=== PATIENT | female | born 1975 | race Caucasian/White ===

== ENCOUNTER 2019-07-22 12:40 | Emergency (ER) | payer OTHER ==
--- NOTE | 2019-07-22 13:08 | ER Document Report ---
ED Medical Screen (RME) - General Chief Complaint: Chest Pain Stated Complaint: PALPITATIONS/BLOOD PRESSURES ISSUES Time Seen by Provider: 07/22/19 13:01 Primary Care Provider: GISELLA HOUSE DO [Primary Care Provider] - Follow up as needed Mode of Arrival: Ambulatory Information source: Patient Notes: This 43-year-old female with history of breast cancer double mastectomy presents emergency department with palpitations feeling very weird. Patient feels very anxious. Refusing to sit down reports it makes her feel worse. Reports she is felt nauseated. Last bowel movement prior to arrival. Reports that she is had a cold she is been fighting she took some vitamin C some Advil cold medicine she takes several supplements for health. Patient is extremely anxious. EKG shows sinus tach with PVC. I have greeted and performed a rapid initial assessment of this patient. A comprehensive ED assessment and evaluation of the patient, analysis of test resu lts and completion of the medical decision making process will be conducted by additional ED providers. Dictation of this chart was performed using voice recognition software; therefore, there may be some unintended grammatical errors. - Related Data Allergies/Adverse Reactions: codeine Allergy (Verified 07/22/19 13:00) Physical Exam - Vital signs Vitals: Temp Pulse Resp BP Pulse Ox 97.4 F 121 H 20 153/101 H 99 07/22/19 12:47 07/22/19 12:47 07/22/19 12:47 07/22/19 12:47 07/22/19 12:47 Course - Vital Signs Vital signs: Temp Pulse Resp BP Pulse Ox 97.4 F 121 H 20 153/101 H 99 07/22/19 12:47 07/22/19 12:47 07/22/19 12:47 07/22/19 12:47 07/22/19 12:47 Doctor's Discharge - Discharge Referrals: GISELLA HOUSE DO [Primary Care Provider] - Follow up as needed
[2019-07-22 13:37] LABS: APPEARANCE,URINE SLIGHTLY-CLOUDY; BILIRUBIN,URINE NEGATIVE (NEGATIVE); GLUCOSE, URINE NEGATIVE (NEGATIVE); KETONES,URINE TRACE mg/dL (NEGATIVE); LEUKOCYTE ESTERASE,URINE SMALL (NEGATIVE); NITRITE,URINE NEGATIVE (NEGATIVE); PROTEIN,URINE NEGATIVE (NEGATIVE); UROBILINOGEN,URINE NEGATIVE mg/dL (<2.0)
--- NOTE | 2019-07-22 13:37 | RADIOLOGY REPORT (SQ) ---
EXAM DESCRIPTION: CHEST 2 VIEWS COMPLETED DATE/TIME: 07/22/2019 1:27 pm REASON FOR STUDY: palpitations COMPARISON: None. EXAM PARAMETERS: NUMBER OF VIEWS: two views TECHNIQUE: Digital Frontal and Lateral radiographic views of the chest acquired. RADIATION DOSE: NA LIMITATIONS: none FINDINGS: LUNGS AND PLEURA: No opacities, masses or pneumothorax. No pleural effusion. MEDIASTINUM AND HILAR STRUCTURES: No masses or contour abnormalities. HEART AND VASCULAR STRUCTURES: Heart normal size. No evidence for failure. BONES: No acute findings. HARDWARE: Surgical clips overlie right upper quadrant and right axilla. OTHER: No other significant finding. IMPRESSION: No evidence of acute cardiopulmonary process. TECHNICAL DOCUMENTATION: JOB ID: [id number] [employer]- All Rights Reserved Reading location - IP/workstation name: [email or web address]
[2019-07-22 13:40] LABS: ABSOLUTE EOSINOPHILS # (AUTO) 0.1 10^3/uL (0.0-0.6); ABSOLUTE MONOCYTES (AUTO) 0.2 10^3/uL (0.1-1.4); BASOPHILS % (AUTO) 0.6 % (0-2); EOSINOPHILS % (AUTO) 1.7 % (0-6); HEMATOCRIT 39.6 % (36.0-47.0); HEMOGLOBIN 13.4 g/dL (12.0-15.5); LYMPHOCYTES % (AUTO) 18.3 % (13-45); MEAN CORPUSCULAR HEMOGLOBIN 28.1 pg (27.0-33.4); MEAN CORPUSCULAR HGB CONC 33.9 g/dL (32.0-36.0); MEAN CORPUSCULAR VOLUME 83 fl (80-97); MONOCYTES % (AUTO) 4.6 % (3-13); PLATELET COUNT 220 10^3/uL (150-450); RED BLOOD COUNT 4.78 10^6/uL (3.72-5.28); RED CELL DISTRIBUTION WIDTH 14.2 % (11.5-14.0); SEGMENTED NEUTROPHILS % (AUTO) 74.8 % (42-78); TOTAL CELLS COUNTED % (AUTO) 100 %; WHITE BLOOD COUNT 5.3 10^3/uL (4.0-10.5)
[2019-07-22 13:41] LABS: COLOR,URINE YELLOW
[2019-07-22 13:53] LABS: ALBUMIN 4.8 g/dL (3.5-5.0); ALKALINE PHOSPHATASE 89 U/L (38-126); ANION GAP 11 (5-19); ASPARTATE AMINO TRANSFERASE 44 U/L (14-36); BILIRUBIN,DIRECT 0.2 mg/dL (0.0-0.4); BILIRUBIN,TOTAL 0.6 mg/dL (0.2-1.3); BLOOD UREA NITROGEN 17 mg/dL (7-20); CALCIUM 9.8 mg/dL (8.4-10.2); CARBON DIOXIDE 28 mmol/L (22-30); CHLORIDE 99 mmol/L (98-107); CREATINE KINASE 102 U/L (30-135); GLUCOSE 134 mg/dL (75-110); POTASSIUM 3.8 mmol/L (3.6-5.0); TOTAL PROTEIN 7.8 g/dL (6.3-8.2)
[2019-07-22 13:58] LABS: URINE AMPHETAMINES SCREEN NEGATIVE; URINE BARBITURATES SCREEN NEGATIVE; URINE BENZODIAZEPINES SCREEN NEGATIVE; URINE COCAINE SCREEN NEGATIVE; URINE MARIJUANA (THC) SCREEN NEGATIVE; URINE METHADONE SCREEN NEGATIVE; URINE PHENCYCLIDINE SCREEN NEGATIVE
[2019-07-22 16:14] VITALS: BP 131/81
--- NOTE | 2019-07-22 16:19 | ER Document Report ---
ED General - General Chief Complaint: Chest Pain Stated Complaint: PALPITATIONS/BLOOD PRESSURES ISSUES Time Seen by Provider: 07/22/19 13:01 Primary Care Provider: GISELLA HOUSE DO [Primary Care Provider] - Follow up in 3-5 days Mode of Arrival: Ambulatory - [facility] Notes: Patient is a 43-year-old female with a history of breast cancer status post double mastectomy and radiation in the past who presents complaining of feeling flushed and palpitations this morning which have since resolved. Pt also has been having nasal justine/discharge with sinus pressure that began yesterday. When patient was being triaged she states that she felt very anxious at the time and could feel her heart racing. Patient states that she was drinking coffee and took a couple different [id number] cold meds that had phenylephrine in it on an empty stomach just prior to the start of symptoms. Patient states that she did not notice any significant chest pain, it was more the feeling of her heart racing and then getting very anxious on top of that with some mild tightness. Patient states that she has had issues with Sudafed in the past and was not aware of the phenylephrine in the medication she was taking. She otherwise does not take any medicines daily. She is able to eat and drink without difficulty. She is urinating normally and having normal bowel movements although today when she is feeling anxious she did have diarrhea once. Denies any prolonged immobilization, distance travel, recent surgery/trauma, personal cancer history, hormone use, smoking, or previous DVT/PE. Denies any headache, fever, neck pain, URI, sore throat, syncope, cough, wheeze, dyspnea, abdominal pain, nausea/vomiting/diarrhea, urinary retention, dysuria, hematuria, or rash. - Related Data Allergies/Adverse Reactions: codeine Allergy (Verified 07/22/19 13:00) Past Medical History - General Information source: Patient - Social History Smoking Status: Former Smoker Family History: Reviewed & Not Pertinent Patient has suicidal ideation: No Patient has homicidal ideation: No Review of Systems - Review of Systems -: Yes All other systems reviewed and negative Physical Exam - Vital signs Vitals: Temp Pulse Resp BP Pulse Ox 97.4 F 121 H 20 153/101 H 99 07/22/19 12:47 07/22/19 12:47 07/22/19 12:47 07/22/19 12:47 07/22/19 12:47 - Notes Notes: PHYSICAL EXAMINATION: GENERAL: Well-appearing, well-nourished and in no acute distress. HEAD: Atraumatic, normocephalic. EYES: Pupils equal round and reactive to light, extraocular movements intact, sclera anicteric, conjunctiva are normal. ENT: Nares patent and without discharge. oropharynx clear without exudates. No tonsilar hypertrophy or erythema. Moist mucous membranes. NECK: Normal range of motion, supple without lymphadenopathy LUNGS: Breath sounds clear to auscultation bilaterally and equal. No wheezes rales or rhonchi. HEART: Regular rate and rhythm without murmurs, rubs, gallops. ABDOMEN: Soft, nontender, nondistended abdomen. No guarding, no rebound. Normal bowel sounds present. No CVA tenderness bilaterally. Musculoskeletal: FROM to passive/active. Strength 5+/5. Pato neg. No asymmetry to LE's. Extremities: No cyanosis, clubbing, or edema b/l. Peripheral pulses 2+. Capillary refill less than 3 seconds. NEUROLOGICAL: Normal speech, normal gait. PSYCH: Normal mood, normal affect. SKIN: Warm, Dry, normal turgor, no rashes or lesions noted. Course - Re-evaluation Re-evalutation: 07/22/19 16:45 Patient is an afebrile, well-hydrated 43-year-old female who presents to the ED with palpitations, since resolved, and URI that I suspect to be viral. I do suspect that the caffeine and combination with the otc cold medications on an empty stomach had an influence on her presentation today in combination with anxiety. Vitals are acceptable without any significant tachycardia, tachypnea, or hypoxia. PE is otherwise unremarkable. Pt was noted to be very anxious at triage which I since resolved. Patient is nontoxic-appearing and is tolerating p.o. without any difficulties. Pt is currently asymptomatic. CBC, CMP, EKG/cardiac enzyme, chest x-ray are all unremarkable for any acute pathology. Pt had repeat vitals as she is no longer anxious with repeat EKG(HR 77) which were acceptable. She was never tachycardic with me. No other DVT risk factors. Patient has a heart score of 2, Wells score of 0, and is PERC negative. Patient does not have any chest pain, dyspnea, or shortness of breath. Patient's presentation and symptomatology creates low suspicion for ACS, PE, pneumothorax, pericarditis, dissection, respiratory compromise, severe dehydration, sepsis, meningitis, or other systemic emergent condition at this time. Patient is aware that this condition can change from initial presentation and she needs to monitor symptoms closely and seek medical attention for any acute changes. Pt is feeling better and would like to go home. Recommend conservative measures for symptoms. Recheck with your PCM in 2-3 days. Consider consult with Cardiology. Return to the ED with any worsening/concerning symptoms otherwise as reviewed in discharge. Patient is in agreement. - Vital Signs Vital signs: Temp Pulse Resp BP Pulse Ox 98.7 F 82 18 131/81 H 98 07/22/19 16:13 07/22/19 16:13 07/22/19 16:13 07/22/19 16:13 07/22/19 16:13 - Laboratory Result Diagrams: 07/22/19 13:11 07/22/19 13:11 Laboratory results interpreted by me: 07/22/19 07/22/19 07/22/19 13:11 13:11 13:11 RDW 14.2 H Glucose 134 H AST 44 H Urine Ketones TRACE H Ur Leukocyte Esterase SMALL H Urine Ascorbic Acid 40 H Discharge - Discharge Clinical Impression: Palpitations Condition: Stable Disposition: HOME, SELF-CARE Instructions: Palpitations (Irregular or Rapid Heartrate) ([facility]) Additional Instructions: Maintain adequate fluid and food intake Healthy diet Monitor blood pressure/heart rate daily and keep a log Monitor symptoms for any acute changes Recheck with your PCM in 3-5 days Consider a follow-up with cardiology Return to the ED with any worsening symptoms and/or development of fever, headache, chest pain, palpitations, syncope, shortness of breath, trouble breathing, abdominal pain, n/v/d, blood in stool/urine, loss of control of bowel/bladder, urinary retention, muscle weakness/paralysis, numbness/tingling, or other worsening symptoms that are concerning to you. Forms: Elevated Blood Pressure Referrals: GISELLA HOUSE DO [Primary Care Provider] - Follow up in 3-5 days
--- NOTE | 2019-07-23 09:08 | EKG REPORT ---
SEVERITY:- NORMAL ECG - SINUS RHYTHM : Confirmed by: Génesis Matos 23-Jul-2019 09:08:10
--- NOTE | 2019-07-23 09:09 | EKG REPORT ---
SEVERITY:- ABNORMAL ECG - SINUS TACHYCARDIA MULTIPLE VENTRICULAR PREMATURE COMPLEXES : Confirmed by: Génesis Matos 23-Jul-2019 09:08:19
== END 2019-07-22 16:53 | disposition home or self-care (01) ==
LOC: ER 12:40
DX: R00.2 Palpitations (principal); R07.9 Chest pain, unspecified; R09.81 Nasal congestion; R09.89 Other specified symptoms and signs involving the circulatory and respiratory systems; F41.9 Anxiety disorder, unspecified; Z85.3 Personal history of malignant neoplasm of breast; Z98.890 Other specified postprocedural states; Z87.891 Personal history of nicotine dependence
CPT/HCPCS: 36415; 71046; 80053; 80307; 81001; 81025; 82550; 84484; 85025; 93005; 93010; 99285

== ENCOUNTER 2020-09-09 17:12 | Emergency (ER) | payer OTHER ==
[2020-09-09] MEDS ORDERED: PREDNISONE 20 MG TABLET PO ONE (18:05)
--- NOTE | 2020-09-09 18:07 | ER Document Report ---
ED Medical Screen (RME) - General Chief Complaint: Shortness Of Breath Stated Complaint: SHORTNESS OF BREATH Time Seen by Provider: 09/09/20 18:04 Mode of Arrival: Ambulatory Information source: Patient Notes: 45-year-old female presents to ED for complaint of shortness of breath and cough on August 08. She states she did test negative for Covid at that time. [place]. [place] had a follow-up visit for Covid and strep at the urgent care when she had no sense of taste. She states they started her on Augmentin she felt better for a little while and then it came back. [place] she had atypical pneumonia and started on albuterol, Levaquin and then she had a reverse reaction to the Levaquin so they stopped the Levaquin and started on a Z-Farzad. She states her shortness of breath is gotten worse and she gets very exhausted when she walks. States she does not drink use any drugs she is a former smoker. I have repeated the Covid strep flu chest x-ray have ordered her some steroids and she will be seen by another provider. I have greeted and performed a rapid initial assessment of this patient. A comprehensive ED assessment and evaluation of the patient, analysis of test results and completion of medical decision making process will be conducted by an additional ED providers. - Related Data Allergies/Adverse Reactions: codeine Allergy (Verified 07/22/19 13:00) levofloxacin [From Levaquin] Adverse Reaction (Verified 09/09/20 18:04) Anxiety Home Medications: vitamins Past Medical History - Social History Chew tobacco use (# tins/day): No Frequency of alcohol use: None Drug Abuse: None Physical Exam - Vital signs Vitals: Temp Pulse Resp BP Pulse Ox 98.7 F 124 H 20 149/95 H 97 09/09/20 17:43 09/09/20 17:43 09/09/20 17:43 09/09/20 17:43 09/09/20 17:43 Course - Vital Signs Vital signs: Temp Pulse Resp BP Pulse Ox 98.7 F 124 H 20 149/95 H 97 09/09/20 17:43 09/09/20 17:43 09/09/20 17:43 09/09/20 17:43 09/09/20 17:43
[2020-09-09 19:07] LABS: ABSOLUTE EOSINOPHILS # (AUTO) 0.3 10^3/uL (0.0-0.6); ABSOLUTE LYMPHOCYTES (AUTO) 1.1 10^3/uL (0.5-4.7); ABSOLUTE MONOCYTES (AUTO) 0.6 10^3/uL (0.1-1.4); ABSOLUTE NEUT (AUTO) 8.3 10^3/uL (1.7-8.2); BASOPHILS % (AUTO) 0.4 % (0-2); EOSINOPHILS % (AUTO) 2.8 % (0-6); HEMATOCRIT 40.8 % (36.0-47.0); HEMOGLOBIN 14.1 g/dL (12.0-15.5); LYMPHOCYTES % (AUTO) 10.8 % (13-45); MEAN CORPUSCULAR HEMOGLOBIN 29.3 pg (27.0-33.4); MEAN CORPUSCULAR HGB CONC 34.6 g/dL (32.0-36.0); MEAN CORPUSCULAR VOLUME 85 fl (80-97); PLATELET COUNT 245 10^3/uL (150-450); RED BLOOD COUNT 4.82 10^6/uL (3.72-5.28); RED CELL DISTRIBUTION WIDTH 13.8 % (11.5-14.0); TOTAL CELLS COUNTED % (AUTO) 100 %; WHITE BLOOD COUNT 10.3 10^3/uL (4.0-10.5)
[2020-09-09] MEDS ORDERED: NORMAL SALINE 1000 ML 1,000 ML IV ONE (19:11)
[2020-09-09] MEDS ORDERED: IPRATROPIUM/ALBUTEROL 0.5-2.5 MG/3 ML AMPUL NEB ONE ×2 (19:11)
--- NOTE | 2020-09-09 19:12 | RADIOLOGY REPORT (SQ) ---
EXAM DESCRIPTION: CHEST SINGLE VIEW IMAGES COMPLETED DATE/TIME: 09/09/2020 7:03 pm REASON FOR STUDY: Cough congestion short of breath decreased sense o COMPARISON: 07/22/2019 EXAM PARAMETERS: NUMBER OF VIEWS: One view. TECHNIQUE: Single frontal radiographic view of the chest acquired. RADIATION DOSE: NA LIMITATIONS: None. FINDINGS: LUNGS AND PLEURA: No opacities, masses or pneumothorax. No pleural effusion. MEDIASTINUM AND HILAR STRUCTURES: No masses. Contour normal. HEART AND VASCULAR STRUCTURES: Heart normal in size. Normal vasculature. BONES: No acute findings. HARDWARE: None in the chest. OTHER: No other significant finding. IMPRESSION: NO ACUTE RADIOGRAPHIC FINDING IN THE CHEST. TECHNICAL DOCUMENTATION: JOB ID: [id number] [employer]- All Rights Reserved Reading location - IP/workstation name: [email or web address]
[2020-09-09 19:30] LABS: ALKALINE PHOSPHATASE 123 U/L (38-126); ANION GAP 10 (5-19); ASPARTATE AMINO TRANSFERASE 154 U/L (14-36); BILIRUBIN,DIRECT 0.1 mg/dL (0.0-0.4); BILIRUBIN,TOTAL 0.5 mg/dL (0.2-1.3); BLOOD UREA NITROGEN 16 mg/dL (7-20); CALCIUM 10.2 mg/dL (8.4-10.2); CARBON DIOXIDE 27 mmol/L (22-30); CHLORIDE 104 mmol/L (98-107); GLUCOSE 105 mg/dL (75-110); POTASSIUM 4.7 mmol/L (3.6-5.0); TOTAL PROTEIN 8.4 g/dL (6.3-8.2)
--- NOTE | 2020-09-09 19:42 | ER Document Report ---
ED Respiratory Problem - General Chief Complaint: Shortness Of Breath Stated Complaint: SHORTNESS OF BREATH Time Seen by Provider: 09/09/20 18:04 Mode of Arrival: Ambulatory - [facility] Notes: Patient is a 45-year-old female with a past medical history of breast cancer in remission who presents with cough and shortness of breath. States she has had symptoms for about 1 month. She finished Augmentin and felt better but symptoms returned after she finished. She took 1 day of Levaquin but did not like the reaction to it which made her anxious so she stopped. Her doctor put her on azithromycin instead. She is on day 3 of her Z-Farzad. Patient states she has shortness of breath with walking. She has a cough productive of yellow sputum. She states it hurts in her chest when she coughs. Denies any fevers. States she has been using her Mucinex and her inhaler without relief. Denies any history of previous PE. She has no leg swelling or recent surgeries. No periods of immobility. She is not on any estrogen. - Related Data Allergies/Adverse Reactions: codeine Allergy (Verified 07/22/19 13:00) levofloxacin [From Levaquin] Adverse Reaction (Verified 09/09/20 18:04) Anxiety Home Medications: vitamins Past Medical History - General Information source: Patient - Social History Smoking Status: Former Smoker Chew tobacco use (# tins/day): No Frequency of alcohol use: None Drug Abuse: None Family History: Reviewed & Not Pertinent Review of Systems - Review of Systems Notes: CONSTITUTIONAL: No fever, fatigue or weight loss. SKIN: No rash. HENT: No congestion, ear pain, or sore throat. EYES: No recent vision problems or eye pain. ENDOCRINE: No thyroid problems. No polyuria or polydipsia. CARDIOVASCULAR: Chest pain with coughing. RESPIRATORY: Positive for cough, wheezing, shortness of breath GASTROINTESTINAL: No abdominal pain, nausea, vomiting. Positive for diarrhea. GENITOURINARY: No dysuria. MUSCULOSKELETAL: No joint pain or swelling. LYMPHATIC: No swollen glands. NEUROLOGIC: No seizures. No headache, focal weakness or sensory changes. HEMATOLOGIC: No unusual bruising or bleeding. PSYCHIATRIC: No depression or anxiety. Physical Exam - Vital signs Vitals: Temp Pulse Resp BP Pulse Ox 98.7 F 124 H 20 149/95 H 97 09/09/20 17:43 09/09/20 17:43 09/09/20 17:43 09/09/20 17:43 09/09/20 17:43 - General General appearance: Appears well Notes: VITAL SIGNS: Within normal limits. GENERAL: No acute distress, non-toxic appearance. HEAD: Normal with no signs of head trauma. EYES: EOMI, conjunctiva normal, no discharge. EARS: Hearing grossly intact. NOSE: Normal. NECK: Normal range of motion, no tenderness, supple, no lymphadenopathy, No adenopathy, no JVD. CHEST: Scattered wheezing bilaterally. CARDIAC: Regular rate and rhythm. S1 and S2, without murmurs, gallops, or rubs. VASCULAR: No Edema. ABDOMEN: Normal and soft with no tenderness GENITOURINARY: Normal, No tenderness LYMPATHTIC: No lymphadenopathy noted. MUSCULOSKELETAL: Good range of motion of all major joints. Extremities without clubbing, cyanosis or edema. NEUROLOGICAL: Alert and oriented x 3. No focal sensory or strength deficits. Speech normal. Follows commands appropriately. PSYCHIATRIC: Normal Affect, judgement and mood. SKIN: Normal appearance with no rashes or lesions. Course - Re-evaluation Re-evalutation: 09/09/20 20:49 Patient has had 2 negative Covid tests. She has had x-rays done. Patient is still having symptoms. She does have a history of breast cancer. I did discuss with her an option of a CTA to evaluate for pneumonia versus PE. Patient states she would like to have this done. Will be given DuoNeb's and steroids. Patient's CTA is negative for PE. She does have evidence of bronchitis. Patient was told that she can finish her Z-Farzad that she already started but she does not need any other antibiotics. I will send her home with a short burst of steroids. Patient ambulated without difficulty and pulse ox was normal. Her heart rate has improved with fluids. Patient asked if she could have her inhaler refilled as well as nebulizer treatments. Patient was told she needs to follow-up with her PCP. I did discuss with her the transaminitis and told her this needs to be followed up with to make sure it has resolved. She was also told to return if she develops any abdominal pain or vomiting. She was instructed to stay hydrated. Patient was retested for Covid and told to self isolate until she is called with a negative result. Patient is very agreeable and understands the plan for follow-up. Strict return precautions provided. 09/10/20 02:24 09/10/20 02:26 - Vital Signs Vital signs: Temp Pulse Resp BP Pulse Ox 98.9 F 86 16 129/74 H 94 09/09/20 22:10 09/09/20 22:10 09/09/20 22:10 09/09/20 22:10 09/09/20 22:10 - Laboratory Result Diagrams: 09/09/20 19:00 09/09/20 19:00 Laboratory results interpreted by me: 09/09/20 09/09/20 19:00 19:00 Lymph % (Auto) 10.8 L Absolute Neuts (auto) 8.3 H Seg Neutrophils % 80.0 H AST 154 H ALT 73 H Total Protein 8.4 H - Diagnostic Test Radiology reviewed: Image reviewed, Reports reviewed - EKG Interpretation by Me EKG shows normal: Sinus rhythm Rate: Tachycardia When compared to previous EKG there are: No significant change Additional EKG results interpreted by me: 09/09/20 22:03 Sinus tachycardia at a rate of 127. QTc 454. No acute ST changes. EKG is similar to previous. Discharge - Discharge Clinical Impression: Cough, Wheezing, Transaminitis, Bronchitis Condition: Stable Disposition: HOME, SELF-CARE Instructions: COVID-19 Guidance for Persons Under Investigation, Bronchitis With Bronchospasm (Wheezing) ([facility]) Additional Instructions: Please follow-up with your family doctor. Make sure you are staying hydrated. You were tested for COVID-19. You must self isolate until you are called with a negative result. You have evidence of elevated liver enzymes. Please follow-up with your family doctor to have your labs re checked. Return to the ER for any shortness of breath, chest pain, return of symptoms, abdominal pain, any other concerning signs. Prescriptions: Albuterol Sulfate [Albuterol Sulfate Hfa] 2 puff IH Q6H PRN #1 hfa.aer.ad PRN Reason: Prednisone [Deltasone 20 mg Tablet] 40 mg PO DAILY 4 Days #8 tablet Albuterol Sulfate [Ventolin 0.083% Neb 2.5 mg/3 mL Ampul] 2.5 mg NEB Q4H PRN #30 vial.neb PRN Reason:
[2020-09-09 20:02] LABS: A TYPE INFLUENZA AG NEGATIVE (NEGATIVE); B INFLUENZA AG NEGATIVE (NEGATIVE)
--- NOTE | 2020-09-09 20:47 | RADIOLOGY REPORT (SQ) ---
EXAM DESCRIPTION: CT CHEST ANGIOGRAPHY WITHOUT THEN WITH IV CONTRAST COMPLETED DATE/TME: 09/09/2020 20:12 CLINICAL HISTORY: 45 years, Female, sob, cough, rule out PE/pneumonia COMPARISON: Chest x-ray from today. TECHNIQUE: Axial images with 57 mL of Omnipaque 350. MIP reconstruction. Images stored on PACS. All CT scanners at this facility use dose modulation, iterative reconstruction, and/or weight based dosing when appropriate to reduce radiation dose to as low as reasonably achievable (ALARA). FINDINGS: No evidence for pulmonary embolus. Aorta is unremarkable.. Heart is not enlarged. No evidence for pericardial effusion. Borderline subcarinal low density adenopathy up to 12 mm in diameter. Mild motion artifact in evaluating the lungs. Mild bronchial wall thickening in both lower lobes lingula and right middle lobe. Minimal peripheral interstitial abnormalities in the right upper lobe. There are no typical patchy groundglass opacities better seen with viral pneumonia. No evidence for pleural disease. Bilateral breast implants. No suspicious spine abnormality. Limited images of the upper abdomen are unremarkable. IMPRESSION: 1. No evidence for pulmonary embolus. 2. There is diffuse evidence for bronchitis. There are no typical groundglass opacities that are seen with viral pneumonia although this cannot be excluded. Study limited by motion artifact. 3. Nonspecific borderline mediastinal adenopathy more likely reactive.
[2020-09-09 22:17] VITALS: BP 129/74
== END 2020-09-09 22:15 | disposition home or self-care (01) ==
LOC: ER 17:12
DX: J40 Bronchitis, not specified as acute or chronic (principal); R74.01 Elevation of levels of liver transaminase levels; R06.2 Wheezing; R06.02 Shortness of breath; Z20.828 Contact with and (suspected) exposure to other viral communicable diseases; Z85.3 Personal history of malignant neoplasm of breast
CPT/HCPCS: 94640 ×2; 99285; 96360; 36415; 87070; 87880; 85025; 81025; 87635; 80053; 84484; 87804; 71045; 71275; J7512; J7030; C9803

== ENCOUNTER 2020-09-15 01:42 | Emergency (ER) | payer OTHER ==
[2020-09-15] MEDS ORDERED: IPRATROPIUM/ALBUTEROL 0.5-2.5 MG/3 ML AMPUL NEB ONE (01:58)
[2020-09-15] MEDS ORDERED: DEXAMETHASONE SOD PHOSPHATE INJ 4 MG/1 ML VIAL IM ONE (01:58)
--- NOTE | 2020-09-15 02:00 | ER Document Report ---
ED Medical Screen (RME) - General Chief Complaint: Shortness Of Breath Stated Complaint: SHORTNESS OF BREATH Time Seen by Provider: 09/15/20 01:54 Mode of Arrival: Ambulatory Information source: Patient Notes: 45-year-old female coming in today with shortness of breath and tachycardia. She was seen here recently. She was told she had bronchitis after an extensive work-up. He was sent home on prednisone. Comes in tonight because she is feeling significantly worse with increasing shortness of breath. General exam ill-appearing Cardiac tachycardic Pulmonary tachypneic bilateral lungs with diminished breath sounds Abdomen nontender nondistended I have greeted and performed a rapid initial assessment of this patient. A comprehensive ED assessment and evaluation of the patient, analysis of test results and completion of the medical decision making process will be conducted by additional ED providers. - Related Data Allergies/Adverse Reactions: codeine Allergy (Verified 07/22/19 13:00) levofloxacin [From Levaquin] Adverse Reaction (Verified 09/09/20 18:04) Anxiety
[2020-09-15 02:16] LABS: ABSOLUTE EOSINOPHILS # (AUTO) 1.1 10^3/uL (0.0-0.6); ABSOLUTE LYMPHOCYTES (AUTO) 2.3 10^3/uL (0.5-4.7); ABSOLUTE MONOCYTES (AUTO) 0.8 10^3/uL (0.1-1.4); BASOPHILS % (AUTO) 0.4 % (0-2); EOSINOPHILS % (AUTO) 10.8 % (0-6); HEMATOCRIT 39.4 % (36.0-47.0); HEMOGLOBIN 13.5 g/dL (12.0-15.5); LYMPHOCYTES % (AUTO) 22.3 % (13-45); MEAN CORPUSCULAR HEMOGLOBIN 29.1 pg (27.0-33.4); MEAN CORPUSCULAR HGB CONC 34.3 g/dL (32.0-36.0); MEAN CORPUSCULAR VOLUME 85 fl (80-97); MONOCYTES % (AUTO) 7.9 % (3-13); PLATELET COUNT 287 10^3/uL (150-450); RED BLOOD COUNT 4.64 10^6/uL (3.72-5.28); SEGMENTED NEUTROPHILS % (AUTO) 58.6 % (42-78); TOTAL CELLS COUNTED % (AUTO) 100 %; WHITE BLOOD COUNT 10.3 10^3/uL (4.0-10.5)
[2020-09-15 02:32] LABS: ALBUMIN 4.5 g/dL (3.5-5.0); ALKALINE PHOSPHATASE 111 U/L (38-126); ANION GAP 9 (5-19); ASPARTATE AMINO TRANSFERASE 46 U/L (14-36); BILIRUBIN,DIRECT 0.1 mg/dL (0.0-0.4); BILIRUBIN,TOTAL 0.4 mg/dL (0.2-1.3); BLOOD UREA NITROGEN 13 mg/dL (7-20); CALCIUM 9.1 mg/dL (8.4-10.2); CARBON DIOXIDE 28 mmol/L (22-30); CHLORIDE 102 mmol/L (98-107); GLUCOSE 121 mg/dL (75-110); POTASSIUM 3.5 mmol/L (3.6-5.0); TOTAL PROTEIN 7.5 g/dL (6.3-8.2)
--- NOTE | 2020-09-15 02:45 | RADIOLOGY REPORT (SQ) ---
EXAM DESCRIPTION: Site: CHEST SINGLE VIEW RP: XR CHEST 1 VIEW CLINICAL HISTORY: 45 years Female; SOB, HYPOXIA; COMPARISON: 09/09/2020 FINDINGS: Lungs: Lungs are clear, with no focal infiltrate, pneumothorax, or pleural effusion. Mediastinum: Mediastinum is within normal limits for this positioning. Bones: Bony structures are unremarkable. Right chest wall surgical clips are again noted. IMPRESSION: 1. No acute pulmonary findings.
--- NOTE | 2020-09-15 04:16 | ER Document Report ---
ED Respiratory Problem - General Chief Complaint: Shortness Of Breath Stated Complaint: SHORTNESS OF BREATH Time Seen by Provider: 09/15/20 01:54 Primary Care Provider: SANTOSH HOLBROOK JR, MD [Primary Care Provider] - Follow up as needed Mode of Arrival: Ambulatory Notes: CHIEF COMPLAINT: Shortness of breath HPI: 45-year-old female diagnosed with bronchitis a week ago presenting for shortness of breath tonight that she felt was worse. Has been using her inhaler every 4 hours. States she has been on prednisone. No fever. States that her primary care provider did put her on antibiotics. Patient denies other complaints at this time. ROS: See HPI - all other systems were reviewed and are otherwise negative Constitutional: no fever Eyes: no drainage, no blurred vision ENT: no runny nose, no sore throat Cardiovascular: no chest pain Resp: + SOB, + cough GI: no vomiting, no diarrhea, no abdominal pain : no dysuria Integumentary: no rash Allergy: no hives Musculoskeletal: no extremity pain or swelling Neurological: no numbness/tingling, no weakness MEDICATIONS: I agree with the patient medications as charted by the RN. ALLERGIES: I agree with the allergies as charted by the RN. PAST MEDICAL HISTORY/PAST SURGICAL HISTORY: Reviewed and agree as charted by RN. SOCIAL HISTORY: Reviewed and agree as charted by RN. FAMILY HISTORY: No significant familial comorbid conditions directly related to patient complaint EXAM: Reviewed vital signs as charted by RN. CONSTITUTIONAL: Alert and oriented and responds appropriately to questions. Well-appearing; well-nourished HEAD: Normocephalic; atraumatic EYES: PERRL; Conjunctivae clear, sclerae non-icteric ENT: normal nose; no rhinorrhea; moist mucous membranes; pharynx without lesions noted, no uvula edema or deviation, no tonsillar hypertrophy, phonation normal NECK: Supple without meningismus; non-tender; no cervical lymphadenopathy, no masses CARD: RRR; no murmurs, no clicks, no rubs, no gallops; symmetric distal pulses RESP: Normal chest excursion without splinting. Mild tachypnea; breath sounds noted to have mild expiratory wheezing, no rhonchi, no rales, pulse oximetry 98% on room air not hypoxic ABD/GI: Normal bowel sounds; non-distended; soft, non-tender, no rebound, no guarding; no palpable organomegaly or masses. BACK: The back appears normal and is non-tender to palpation, there is no CVA tenderness EXT: Normal ROM in all joints; non-tender to palpation; no cyanosis, no effusions, no edema SKIN: Normal color for age and race; warm; dry; good turgor; no acute lesions noted NEURO: Moves all extremities equally; Motor and sensory function intact PSYCH: The patient's mood and manner are appropriate. Grooming and personal hygiene are appropriate. MDM: 45-year-old female with what appears to be bronchospasm. Seen 6 days ago for same complaint has been on steroids and antibiotics since then. Has been using an albuterol inhaler. Had CTA of the chest done 6 days ago that was completely normal except for possible bronchitis. Likely dealing with residual symptoms. Has not hypoxic. Initial breathing treatments and steroids via triage process. Lab work was normal. Anticipate discharge home if she feels better after breathing treatment and steroids. - Related Data Allergies/Adverse Reactions: codeine Allergy (Verified 07/22/19 13:00) levofloxacin [From Levaquin] Adverse Reaction (Verified 09/09/20 18:04) Anxiety Home Medications: finished z isabelle, finished predisone. No regular prescrip meds. MVI Past Medical History - General Information source: Patient - Social History Smoking Status: Former Smoker Chew tobacco use (# tins/day): No Frequency of alcohol use: None Drug Abuse: None Family History: Reviewed & Not Pertinent Physical Exam - Vital signs Vitals: Temp 98.2 F 09/15/20 01:54 Course - Re-evaluation Re-evalutation: 09/15/20 04:31 Patient mildly tachycardic after breathing treatments. Still mildly hypoxic with a pulse oximetry ranging from 92 to 94% with a spastic cough noted. She is taking fairly shallow breaths. Will ambulate with pulse ox and reassess 09/15/20 04:48 On ambulation patient's pulse ox maintains between 93 and 94% when she is reminded to take deep breaths. When she is at rest not aware she is being observed her pulse oximetry is approximately 89 to 90%. She has a spastic cough. Will give magnesium. 09/15/20 05:48 Patient is sitting in the room talking in no distress she does not become significantly dyspneic with speaking. She has received approximately half of her first gram of magnesium but stated to the nurse that she wanted the medication stopped that she felt like it was giving her diarrhea and she did not like how it was making her feel. I spoke with the patient at length we discussed the risks and benefits of the magnesium and how it would likely improve her breathing significantly. Patient already seems to be improved with just a small dose but she declines further magnesium or other medications at this time. We will plan to discharge the patient on Decadron. She requests ref ills of her albuterol. She should follow-up with her primary care provider we specifically discussed return precautions and she verbalized understanding - Vital Signs Vital signs: Temp Pulse Resp BP Pulse Ox 98.6 F 96 148/90 H 92 09/15/20 05:44 09/15/20 05:44 09/15/20 05:44 09/15/20 05:44 - Laboratory Result Diagrams: 09/15/20 02:06 09/15/20 02:06 Laboratory results interpreted by me: 09/15/20 09/15/20 02:06 02:06 Eos % (Auto) 10.8 H Absolute Eos (auto) 1.1 H Potassium 3.5 L Glucose 121 H AST 46 H ALT 46 H Discharge - Discharge Clinical Impression: Acute dyspnea Condition: Stable Disposition: HOME, SELF-CARE Additional Instructions: Follow-up with your primary care providers for reevaluation of symptoms, if you do not have a primary care provider you may utilize the on-call provider tonight. Continue the albuterol 2 puffs every 4 hours or breathing treatment every 4 hours as needed for shortness of breath. Take the Decadron as prescribed. You declined magnesium tonight here in the emergency department which may have helped your breathing. If you have worsening symptoms return for reevaluation Prescriptions: Dexamethasone [Decadron 4 Mg Tablet] 4 mg PO DAILY #7 tablet Albuterol Sulfate [Proair HFA Inhalation Aerosol 8.5 gm MDI] 2 puff IH Q4H PRN #1 mdi PRN Reason: Albuterol Sulfate [Ventolin 0.083% Neb 2.5 mg/3 mL Ampul] 1 vial NEB Q4 #20 vial Referrals: SANTOSH HOLBROOK JR, MD [Primary Care Provider] - Follow up as needed
[2020-09-15] MEDS: MAGNESIUM SULFATE/D5W 1 GM/100 ML RTUPB IV SCH ×2 (05:07→06:21)
[2020-09-15 06:17] VITALS: BP 128/77
--- NOTE | 2020-09-15 08:33 | EKG REPORT ---
SEVERITY:- BORDERLINE ECG - SINUS TACHYCARDIA PROBABLE LEFT ATRIAL ABNORMALITY BORDERLINE T ABNORMALITIES, ANT-LAT LEADS : Confirmed by: Kaylie Cooper MD 15-Sep-2020 08:32:19
== END 2020-09-15 06:15 | disposition home or self-care (01) ==
LOC: ER 01:42
DX: R06.02 Shortness of breath (principal); R05 Cough; R06.2 Wheezing; R09.02 Hypoxemia; Z79.899 Other long term (current) drug therapy; Z88.6 Allergy status to analgesic agent; Z88.5 Allergy status to narcotic agent; Z87.891 Personal history of nicotine dependence
CPT/HCPCS: 93005; 94640; 99285; 96372; 96374; 36415; 85025; 80053; 71045; 93010; J1100; J3475